=== PATIENT | female | born 1990 | race Two or more races ===

== ENCOUNTER 2018-12-07 08:33 | Emergency (ER) | payer MEDICAID ==
[~2018-12-07] VITALS: Ht 165.1 cm; Wt 74.8 kg
[2018-12-07 08:40] VITALS: BP 111/79
[2018-12-07] MEDS ORDERED: IBUPROFEN 800 MG TAB PO ONE (11:15)
== END 2018-12-07 11:46 | disposition home or self-care (01) ==
LOC: ER 08:33
DX: S93.401A Sprain of unspecified ligament of right ankle, initial encounter (principal); S80.02XA Contusion of left knee, initial encounter; W18.39XA Other fall on same level, initial encounter; Y93.01 Activity, walking, marching and hiking; Y99.8 Other external cause status; Y92.89 Other specified places as the place of occurrence of the external cause
CPT/HCPCS: 73562; 73610